=== PATIENT | female | born 1950 | race Two or more races ===

== ENCOUNTER 2021-03-31 13:00 | Inpatient (IN) | payer OTHER ==
[~2021-03-31] VITALS: Ht 154.9 cm; Wt 64.4 kg
[2021-03-31] MEDS ORDERED: ATACAND HCT 321 EAC1 PO (15:56)
[2021-03-31] MEDS ORDERED: SYNTHROID75 MCG PO (15:56)
[2021-03-31] MEDS ORDERED: CARDURA1 MG PO (15:57)
[2021-04-03] MEDS ORDERED: DOXAZOSIN MESYLA2 MG (07:57)
[2021-04-03] MEDS ORDERED: ATORVASTATIN CA10 MG (07:57)
[2021-04-03] MEDS ORDERED: RISEDRONATE SO150 MG (07:57)
[2021-04-03] MEDS ORDERED: VITAMIN D3250 MCG (07:57)
[2021-04-03] MEDS ORDERED: VITAMIN C1000 MG (07:57)
[2021-04-03] MEDS ORDERED: FLONASE16 GM (07:57)
[2021-04-03] MEDS ORDERED: VITAMIN B-121000 MCG (07:58)
== END 2021-04-05 11:59 | disposition home or self-care (01) | DRG 743 ==
LOC: OB/GYN 04-03 04:30 → O/R 04-03 04:30 → SURH 04-03 07:00 → OB/GYN 04-03 10:59 → SURH 04-03 13:00 → OB/GYN 04-03 14:24
PROVIDERS: ADMIT Specialist; ATTEND Specialist
PROC: 0UT24ZZ Resection of Bilateral Ovaries, Percutaneous Endoscopic Approach (ICD-10-PCS; 2021-04-03)
PROC: 0UT74ZZ Resection of Bilateral Fallopian Tubes, Percutaneous Endoscopic Approach (ICD-10-PCS; 2021-04-03)
PROC: 0TN74ZZ Release Left Ureter, Percutaneous Endoscopic Approach (ICD-10-PCS; 2021-04-03)
PROC: 0TN64ZZ Release Right Ureter, Percutaneous Endoscopic Approach (ICD-10-PCS; 2021-04-03)
PROC: 0DNU4ZZ Release Omentum, Percutaneous Endoscopic Approach (ICD-10-PCS; 2021-04-03)
PROC: 0DNW4ZZ Release Peritoneum, Percutaneous Endoscopic Approach (ICD-10-PCS; 2021-04-03)
PROC: 0UT94ZZ Resection of Uterus, Percutaneous Endoscopic Approach (ICD-10-PCS; principal; 2021-04-03 07:00)
DX: N80.0 Endometriosis of uterus (principal); D27.1 Benign neoplasm of left ovary; N99.4 Postprocedural pelvic peritoneal adhesions; N73.6 Female pelvic peritoneal adhesions (postinfective); N83.8 Other noninflammatory disorders of ovary, fallopian tube and broad ligament